=== PATIENT | male | born 1965 | race Caucasian/White ===

== ENCOUNTER 2021-08-06 20:08 | Emergency (ER) | payer OTHER ==
[~2021-08-06] VITALS: Ht 190.5 cm; Wt 90.7 kg
[2021-08-06 20:14] VITALS: BP 114/73
== END 2021-08-06 21:48 | disposition home or self-care (01) ==
LOC: ER 20:08
DX: T18.0XXA Foreign body in mouth, initial encounter (principal); F12.90 Cannabis use, unspecified, uncomplicated; Z98.890 Other specified postprocedural states; X58.XXXA Exposure to other specified factors, initial encounter; Y93.89 Activity, other specified; Y92.89 Other specified places as the place of occurrence of the external cause; Y99.8 Other external cause status